=== PATIENT | female | born 1960 | race Caucasian/White ===

== ENCOUNTER → 2016-10-20 | Outpatient (CLI) | payer BC ==
--- NOTE | 2016-10-20 12:45 | MR ---
EXAMINATION TYPE: MR knee RT wo con DATE OF EXAM: 10/20/2016 12:23 PM COMPARISON: Outside right lower extremity x-ray August 04, 2016 HISTORY: Right knee pain per order. Outer knee pain and swelling for 4 months after a slip and fall i njury per patient TECHNIQUE: Multiplanar, multisequence images of the knee is performed without IV contrast. FINDINGS: MEDIAL MENISCUS: There is vague signal in the medial meniscus involving the posterior horn seen on co delmy image 18 and sagittal image 7, full-thickness tear cannot be excluded as on sagittal image 7 as there may be extension to underlying tibial articular surface. LATERAL MENISCUS: Posterior horn is intact without tear. Anterior horn is diminutive in size, abnorma l in appearance, complex multidirectional full-thickness tear is suspected involving inferior and tri tral aspects. This is seen best on sagittal images 25 through 23 tear extending from central avascula r zone into the anterior horn abutting both articular surfaces. CRUCIATE LIGAMENTS: The anterior and posterior cruciate ligaments are intact and unremarkable. COLLATERAL LIGAMENTS: The medial collateral ligament and lateral collateral ligament complex are inta ct and unremarkable. EXTENSOR MECHANISM: Visualized quadriceps and patellar tendons are intact. EFFUSION: There is small to moderate size suprapatellar joint effusion. POPLITEAL CYST: There is a small popliteal/iglesias cyst measuring 3.6 cm on long axis on sagittal image 11. TRICOMPARTMENT SPACES: There is mild to moderate tricompartment joint space loss and mild spurring. CARTILAGE: There is fairly moderate patellofemoral chondromalacia patella with thinning of articular cartilage, full-thickness defects are seen along posterior patellar pole especially medial surface. U nderlying bone marrow signal intensity is maintained. There is more prominent focal full-thickness cartilaginous loss involving the anterior medial aspect of the distal femoral condyle measuring approximately 9 mm transversely on coronal image 12. Some dewayne ctive osseous edema at the bone is noted at this level. BONE MARROW SIGNAL: No additional areas of abnormal focal abnormal marrow signal is appreciated. OTHER: No additional significant abnormality is appreciated. IMPRESSION: 1. Complex multidirectional full-thickness tear involving anterior horn and body of lateral meniscus. 2. At least intrasubstance tear posterior horn of medial meniscus, full-thickness tear cannot be excl uded. 3. Fairly moderate osteoarthritic changes in right knee as detailed above. Underlying chondromalacia patella is noted as detailed above. 4. Focal cartilaginous loss for osteochondral injury involving the anterior medial aspect of distal l ateral femoral condyle as detailed above. 5. Small to moderate size suprapatellar joint effusion. 6. Small popliteal cyst.
== END | disposition home or self-care (01) ==
LOC: RADMRIMAIN 11:40
PROVIDERS: ATTEND Orthopaedic Surgery
DX: S83.271A Complex tear of lateral meniscus, current injury, right knee, initial encounter (principal); M17.11 Unilateral primary osteoarthritis, right knee; M71.21 Synovial cyst of popliteal space [Baker], right knee

== ENCOUNTER → 2016-11-19 | Outpatient (CLI) | payer BC ==
[2016-11-19 13:37] LABS: EKG EKG PERFORMED
[2016-11-19 13:47] LABS: Basophils # (A) 0.1 k/uL (0-0.2); Basophils % (A) 1 %; CH 28.5; CHCM 31.6; Eosinophils # (A) 0.1 k/uL (0-0.7); Eosinophils % (A) 3 %; HCT 42.5 % (34.0-46.0); HDW 2.36; HGB 13.3 gm/dL (11.4-16.0); Luc # (Auto) 0.13; Luc % (Auto) 3; Lymphocytes # (A) 0.9 k/uL (1.0-4.8); Lymphocytes % (A) 17 %; MCH 28.5 pg (25.0-35.0); MCHC 31.4 g/dL (31.0-37.0); MCV 90.7 fL (80.0-100.0); Mean Platelet Volume 6.5; Monocytes # (A) 0.3 k/uL (0-1.0); Monocytes % (A) 6 %; Neutrophils # (A) 3.5 k/uL (1.3-7.7); Neutrophils % (A) 71 %; RBC 4.69 m/uL (3.80-5.40); RDW 13.2 % (11.5-15.5); WBC (Perox) 5.18
[2016-11-19 14:04] LABS: Anion Gap 9 mmol/L; Carbon Dioxide 29 mmol/L (22-30); Chloride 103 mmol/L (98-107); Potassium 4.5 mmol/L (3.5-5.1); Sodium 141 mmol/L (137-145)
== END | disposition home or self-care (01) ==
LOC: LABPAT 13:09
PROVIDERS: ATTEND Orthopaedic Surgery
DX: Z01.810 Encounter for preprocedural cardiovascular examination (principal); M23.91 Unspecified internal derangement of right knee
CPT/HCPCS: 36415; 80051; 85025; 93005

== ENCOUNTER 2016-12-10 07:51 | Day surgery (SDC) | payer BC ==
[2016-12-08 10:32] VITALS: BMI 36.6
--- NOTE | 2016-12-09 15:00 | HP ---
DATE OF ADMISSION: 12/10/2016 Ruchi Bronson is a 56-year-old patient seen with right knee pain. We discussed options. She elected to proceed with right knee arthroscopy. Consent was obtained regarding the procedure. Past medical history is osteoarthritis and asthma. PAST SURGICAL HISTORY: Left knee arthroscopy. DAILY MEDICATIONS: 1. Multivitamins. 2. Aleve. ALLERGIES: PENICILLIN, CECLOR, and NEOSPORIN. SOCIAL HISTORY: Patient denies current tobacco use. Physical evaluation of the right knee: Range of motion is 0 to 120 degrees, there is a mild effusion present. Tenderness medial joint line. Positive medial Carly's. Crepitus along the medial compartment with range of motion. Ligaments stable. Hip rotation is without pain. Distal neurovascular exam is intact. Radiographs of the right knee revealed mild mediolateral and moderate patellofemoral compartment osteoarthritis. An MRI of the right knee revealed medial and lateral meniscal tears. IMPRESSION: Internal major right knee with medial and lateral meniscal tears. PLAN: Right knee arthroscopy with partial medial/lateral meniscectomy and debridement.
[~2016-12-10 07:51] MED LIST: CLINDAMYCIN 900 MG in DEXTROSE 5% IN WATER 50 ML IVPB ONE; DEXAMETHASONE SOD PHOSPHATE 10 MG/ML 1 ML VIAL IV ONE; LACTATED RINGERS 1,000 ML IV SCH; MIDAZOLAM 2 MG/2 ML VIAL IV PRN; ONDANSETRON 4 MG/2 ML VIAL IVP ONE
[2016-12-10] MEDS ORDERED: LIDOCAINE 1% 20 ML VIAL (10MG/ML) FOR IV START INTRADERMA ONE (08:16)
[2016-12-10] MEDS ORDERED: PROPOFOL 10 MG/ML 20 ML VIAL IV ONE (09:31)
[2016-12-10] MEDS ORDERED: fentaNYL (PF) 50 MCG/ML 2 ML AMP ONE (09:31)
[2016-12-10] MEDS ORDERED: SUCCINYLCHOLINE CHLORIDE 100 MG/5 ML SYR IV ONE (09:31)
[2016-12-10] MEDS ORDERED: MIDAZOLAM 2 MG/2 ML VIAL ONE (09:31)
[2016-12-10] MEDS ORDERED: BUPIVACAIN-EPI 0.25%-1:200,000 30 ML VIAL INTRAARTIC ONE ×2 (10:03→10:26)
--- NOTE | 2016-12-10 10:49 | P.OP ---
Date of Procedure: 12/10/16 Preoperative Diagnosis: Internal derangement right knee Postoperative Diagnosis: 1. Medial and lateral meniscal tear right knee 2. 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 Reactive synovitis lateral and suprapatellar compartments right knee Procedure(s) Performed: 1. Arthroscopic partial medial and lateral meniscectomy right knee 2. Arthroscopic chondroplasty lateral femoral condyle right knee 3. Arthroscopic chondroplasty patellofemoral joint right knee 4. Arthroscopic partial synovectomy lateral and suprapatellar compartments right knee Anesthesia: SEVENA, local Surgeon: Harsha Casillas Estimated Blood Loss (ml): 20 Pathology: none sent Condition: stable Disposition: PACU Indications for Procedure: 56-year-old patient seen with right knee pain. After having treatment options discussed, she elected to proceed with right knee arthroscopy. Operative Findings: See description of procedure Description of Procedure: Patient was taken to the operative suite. Patient underwent a general anesthetic by the department of anesthesia. Patient was given preoperative antibiotics. The right lower extremity was placed in a well-padded arthroscopic leg mckeon. The right leg was prepped and draped in the normal sterile orthopedic fashion. A lateral parapatellar and suprapatellar incision was made. Trochars were inserted. Arthroscopy was initiated. Suprapatellar pouch revealed thick reactive synovitis. The patellofemoral joint appeared to articulate congruently. There was grade 3 chondromalacia involving both the patella and femoral sulcus. There were osteochondral tears present.. The scope was guided into the medial gutter. No loose bodies or plica were identified. The scope was then guided into the medial compartment. A medial parapatellar incision was made. Trocar inserted followed by probe. There was a small radial tear involving the posterior horn medial meniscus. Grade 1 chondromalacia changes of both femoral condyle and tibial plateau. No loose bodies. No synovitis. A partial medial meniscectomy performed on a stable tissue. The residual meniscus was found to be stable. Scope and probe were then guided into the intercondylar notch. Cruciates were identified, probed and found to be stable. The scope and probe were then guided into lateral compartment. There was a bucket-handle type tear involving the anterior horn lateral meniscus which extended into the mid body. There were grade 2 chondromalacia changes of the lateral femoral condyle some osteochondral tears present. There was synovitis noted anteriorly. I performed a partial lateral meniscectomy down to stable tissue. A chondroplasty medial femoral condyle was was performed followed by partial synovectomy. The residual meniscus was found to be stable. The scope was in guided back into the suprapatellar compartment. I introduced a motorized shaver into the super patellar compartment and performed a chondroplasty of the patellofemoral joint down to stable tissue followed by partial synovectomy. Shaver was removed. I took one more look on the entire knee and there was no residual debris. Instruments were now removed from the joint. The joint was infiltrated with .25% Marcaine. Steri-Strips were applied to the portal sites. Sterile dressings were applied. The patient was placed into a DARINEL hose. No tourniquet was utilized. The patient was awakened, transferred to a bed and taken to recovery stable satisfactory condition.
[2016-12-10 10:54] VITALS: TEMP 97.2
[2016-12-10] MEDS ORDERED: KETOROLAC 30 MG/ML 1 ML VIAL IVP ONE (11:04)
[2016-12-10] MEDS: HYDROmorphone 1 MG/ML 1 ML SYRINGE IVP PRN ×4 (11:04→11:28)
[2016-12-10] MEDS ORDERED: HYDROcodone/APAP 7.5-325MG 1 EACH TAB PO ONE (12:00)
[2016-12-10 12:10] VITALS: RESP 18
[2016-12-10 12:29] VITALS: BP 120/84; PULSE 80
== END 2016-12-10 13:10 | disposition home or self-care (01) ==
LOC: OR 07:51
PROVIDERS: ATTEND Orthopaedic Surgery
DX: S83.241A Other tear of medial meniscus, current injury, right knee, initial encounter (principal); S83.251A Bucket-handle tear of lateral meniscus, current injury, right knee, initial encounter; X58.XXXA Exposure to other specified factors, initial encounter; M94.261 Chondromalacia, right knee; M22.41 Chondromalacia patellae, right knee; M65.861 Other synovitis and tenosynovitis, right lower leg; M23.91 Unspecified internal derangement of right knee; M25.461 Effusion, right knee; M17.11 Unilateral primary osteoarthritis, right knee; J45.909 Unspecified asthma, uncomplicated; Z79.891 Long term (current) use of opiate analgesic; Z79.1 Long term (current) use of non-steroidal anti-inflammatories (NSAID); Z88.1 Allergy status to other antibiotic agents; Z88.0 Allergy status to penicillin; Z87.891 Personal history of nicotine dependence
CPT/HCPCS: 29880; J1100; J2405; J1885; J1170

== ENCOUNTER → 2022-03-24 | Outpatient (CLI) | payer BC ==
--- NOTE | 2022-03-24 10:54 | CT ---
EXAMINATION TYPE: CT right knee - [facility] Protocol DATE OF EXAM: 03/24/2022 COMPARISON: No recent radiographs available for review HISTORY: 61-year-old female right knee pain, osteoarthritis-right knee. M25.561,M17.11 CT DLP: 665.7 mGycm. Automated exposure control for dose reduction was used. TECHNIQUE: CT scanning of the right lower extremity for surgical planning purposes. Scanning was perf ormed at the right hip, right knee, and right ankle/foot. Coronal and sagittal reconstructions perfor med. FINDINGS: At the hip, there is asymmetric mild degenerative change on the right. Incidental sigmoid diverticulo sis. Uterus surgically absent. No abnormal fluid collection in the pelvis. Multiple right-sided pelvi c phleboliths. At the right knee, there is a moderate to large joint effusion. Suggestion of some small loose bodies in the lateral gutter of the suprapatellar pouch. Tricompartmental degenerative spurring is present greatest in the medial and lateral compartments. Extensor mechanism appears intact. No acute fracture , subluxation, dislocation. There is also a small 3.5 cm Junior's cyst. At the foot, tiny bilateral type I accessory navicular is noted. Some generalized soft tissue swellin g on both sides. Tiny os trigonum. Subtalar joint alignment. Tibiotalar joint intact. IMPRESSION: 1. CT right knee for surgical planning purposes. There is a moderate to large right knee joint effusi on with small Junior's cyst. Tricompartmental OA, greatest in the medial and lateral compartments. 2. Mild right hip OA. 3. Incidental sigmoid diverticulosis.
== END | disposition home or self-care (01) ==
LOC: RADCTMAIN 08:50
PROVIDERS: ATTEND Orthopaedic Surgery
DX: M17.11 Unilateral primary osteoarthritis, right knee (principal); K57.30 Diverticulosis of large intestine without perforation or abscess without bleeding; M16.11 Unilateral primary osteoarthritis, right hip

== ENCOUNTER 2022-05-01 11:02 | Observation (INO) | payer BC ==
[2022-04-29 11:35] VITALS: BMI 39.1
[~2022-05-01 11:02] MED LIST changes: +ACETAMINOPHEN TAB 500 MG TAB PO PRN; -CLINDAMYCIN 900 MG in DEXTROSE 5% IN WATER 50 ML IVPB ONE; -DEXAMETHASONE SOD PHOSPHATE 10 MG/ML 1 ML VIAL IV ONE; +DEXAMETHASONE SOD PHOSPHATE 10 MG/ML 1 ML VIAL IV PRN; +DEXAMETHASONE SOD PHOSPHATE 4 MG/ML 1 ML VIAL IV ONE; +DOCUSATE 100 MG CAP PO PRN; +FAMOTIDINE 20 MG/2 ML VIAL IVP PRN; +HYDROmorphone 0.5 MG/0.5 ML SYRINGE IVP PRN; +KETOROLAC 15 MG/ML 1 ML VIAL IVP PRN; -MIDAZOLAM 2 MG/2 ML VIAL IV PRN; +ONDANSETRON 4 MG/2 ML VIAL IVP PRN; +ROPIVACAINE/EPI/CLONIDINE/KET 50 ML SYRINGE MISCELLANE PRN; +TRANEXAMIC ACID IN NACL,ISO-OS 1,000 MG in SALINE 1 100ML.BAG IVPB PRN; +oxyCODONE ER 10 MG TAB.ER.12H PO PRN
[2022-05-01 11:57] LABS: Glucose,Whole Blood 77 mg/dL (70-110)
[2022-05-01] MEDS ORDERED: fentaNYL (PF) 50 MCG/ML 2 ML AMP IVP ONE (12:25)
[2022-05-01] MEDS ORDERED: MIDAZOLAM 2 MG/2 ML VIAL IVP ONE (12:25)
[2022-05-01] MEDS ORDERED: ROPIVACAINE 5 MG/ML 30 ML VIAL ONE (13:07)
[2022-05-01] MEDS ORDERED: TRANEXAMIC ACID IN NACL,ISO-OS 1,000 MG/100 ML BAG ONE (13:07)
[2022-05-01] MEDS ORDERED: HYDROmorphone (PF) 1 MG/ML ONE (13:07)
[2022-05-01] MEDS ORDERED: PROPOFOL 10 MG/ML 20 ML VIAL IV ONE (13:07)
[2022-05-01] MEDS ORDERED: PHENYLEPHRINE-0.9% NACL SYG 1,000 MCG/10 ML SYRINGE ONE (13:07)
[2022-05-01] MEDS ORDERED: LIDOCAINE 2% INJ 20 MG/ML (2 ML VIAL) ONE (13:07)
[2022-05-01] MEDS ORDERED: SODIUM CHLORIDE 0.9% (PF) 10 ML VIAL ONE (13:07)
[2022-05-01] MEDS ORDERED: ePHEDrine 50 MG/ML 1 ML VIAL ONE (13:07)
[2022-05-01] MEDS ORDERED: MIDAZOLAM 2 MG/2 ML VIAL ONE (13:07)
[2022-05-01] MEDS ORDERED: fentaNYL (PF) 50 MCG/ML 2 ML AMP ONE (13:07)
[2022-05-01] MEDS: ROPIVACAINE/EPI/CLONIDINE/KET 50 ML SYRINGE MISCELLANE PRN ×2 (14:03→14:30)
[2022-05-01] MEDS ORDERED: LACTATED RINGERS 1,000 ML IV ONE (14:45)
[2022-05-01] MEDS ORDERED: HYDROmorphone 1 MG/ML 1 ML SYRINGE IVP PRN (15:29)
[2022-05-01] MEDS ORDERED: HYDROcodone/APAP 5-325MG 1 EACH TAB PO PRN ×2 (15:29)
[2022-05-01] MEDS ORDERED: ONDANSETRON 4 MG/2 ML VIAL IVP PRN (15:29)
[2022-05-01] MEDS ORDERED: HYDROmorphone 0.5 MG/0.5 ML SYRINGE IVP PRN (15:29)
[2022-05-01] MEDS ORDERED: hydrOXYzine pamoate 25 MG CAP PO PRN (15:29)
[2022-05-01] MEDS ORDERED: NALOXONE 0.4 MG/ML 1 ML VIAL IV PRN (15:29)
--- NOTE | 2022-05-01 15:33 | P.OP ---
Date of Procedure: 05/01/22 Preoperative Diagnosis: 1. Right knee osteoarthritis 2. BMI 38.6 Postoperative Diagnosis: Same Procedure(s) Performed: Right total knee arthroplasty Implants: 1. [employer] CR Femur Size #4 2. [employer] [place] Tibial Base Size #3 3. [employer] CS poly Size #3, 9-mm 4. [employer] all poly patella, Size #29 Anesthesia: regional, spinal Surgeon: Binu Corrigan Instructor Of Nursing #1: Ian Yin Instructor Of Nursing #2: Mary Desai Estimated Blood Loss (ml): 100 IV fluids (ml): 1,100 Pathology: none sent Condition: stable Disposition: PACU Indications for Procedure: Patient presented with severe right knee pain. She has had multiple attempts at treatment over the last several years and had continued pain. Her x-rays showed severe joint space narrowing of the lateral compartment and patellofemoral joint. I met with the patient preoperatively in the office setting and discussed treatment of their symptomatic knee arthritis. They failed a long c ourse of nonsurgical treatment and elected to proceed with an elective total knee replacement. I discussed the potential risks and complications at length and gave them ample time to ask questions. Risks discussed included: risks from anesthesia, superficial site surgical infection, acute and/or chronic periprosthetic joint infection, delayed wound healing, drainage, wound necrosis, instability, stiffness, stiffness requiring manipulation and/or revision surgery, damage to local blood vessels or nerves, aseptic loosening of the implants, extensor mechanism issues including disruption, patellar maltracking, avascular necrosis etc., continued or worsened knee pain, generalized dissatisfaction with surgical outcome, need for revision surgery, an inability to regain preinjury level of function, DVT, PE, other medical complications, and possibly loss of life or limb. The patient voiced their understanding that while these are the most common complications other less common complications are possible. They provided both their verbal and written consent to go forward with surgery. Operative Findings: Severe full-thickness cartilage loss in the lateral and patellofemoral compartment with full-thickness cartilage loss. Moderate cartilage loss in the medial compartment. Description of Procedure: The patient was identified in preoperative holding and the correct operative extremity was verified and marked with a marker. I reviewed the consent form with the patient at length. All of their questions were answered. The patient was given a block by anesthesia. They were then brought back to the operating room. They were transferred onto the operating room table where a general anesthetic, preoperative antibiotics, and tranexamic acid were administered by anesthesia. A tourniquet was applied to the proximal aspect of the operative extremity. The contralateral extremity was padded under the heel and secured to the operating room table with a nonsterile blue towel and tape. The ipsilateral arm was carefully draped across the patient's chest and secured with a pillow and foam. A post was applied over the lateral aspect of the ipsilateral thigh and a bolster was placed under the ipsilateral foot. I verified that the operative extremity was stable and the knee was flexed to 90. The operative extremity was then placed in a leg mkceon, nonsterile drapes were applied, and the extremity was prepped and draped sterilely in the standard sterile fashion. Prior to starting surgery timeout was performed identifying the correct patient, operative extremity, and procedure. The leg was then elevated, exsanguinated with an Esmarch bandage, and the tourniquet was inflated. An anterior midline incision was made sharply with a scalpel. Once I had dissected deep to the superficial fascial layer medial and lateral flaps were elevated. A medial parapatellar arthrotomy was created. Upon opening the knee joint there were diffuse arthritic changes in all 3 compartments. The anterior horn of the medial meniscus were sharply released and a medial release was performed around the posterior medial corner of the knee to facilitate retractor placement. The fat pad was excised with electrocautery. The patella was found to be severely arthritic and a provisional cut was made with a sagittal saw to facilitate mobilization of the extensor mechanism during the procedure. Remnants of the ACL and PCL were then excised from the notch. 4 mm pins were then placed within the incision in the medial distal femur and proximal tibia. Arrays were applied to the pins and I verified they were completely tightened. The knee was then registered with the [employer] robot and manipulations in implant position were made to balance the knee and opitmize implant position. Using the [employer] robotic saw all cuts were made in accordance with our plan. After all bony fragments had been removed the cuts were verified with the planar probe. The tibia was then subluxed forward and sized. The knee was brought into flexion and a lamina restorative art embalmer was placed to allow removal of the meniscal remnants both medially and laterally as well as posterior osteophytes. Local anesthetic was then infiltrated around the joint capsule. Trial implants were then placed within the knee. Range of motion and collateral ligament tension was then evaluated. Adjustments in implant size and position were then made accordingly. Once the knee was felt to be appropriately balanced the Kyle pins were removed. The patella was then recut, sized, and punched. A trial patellar button was then placed. With the trial components in place, the patella tracked midline. The femur was then drilled and the trial component removed. The trial tibial component was then appropriately rotated, pinned, and prepared for the keel. All trial components were then removed from the knee. The knee was thoroughly irrigated with pulsatile lavage. Cement was prepared via vacuum mixing in a bowl on the back table. I then hand pressurized cement into the femur and tibia and placed the implants beginning with the tibial base tray and poly liner, femoral component, and finally the patellar button. All extruded cement was removed including from the pin sites. Once the cement had hardened the knee was evaluated one final time with the final polyethylene liner in place. The knee had full extension and flexion and felt stable to varus and valgus stress throughout the arc of motion. The tourniquet was released and with the tourniquet down the patella tracked midline. All bleeders were controlled with electrocautery. The knee was then soaked for 3 minutes with a dilute Betadine soak. The knee was thoroughly irrigated using 3 L of sterile saline and pulsatile lavage. The extensor mechanism was then reapproximated using pop off Vicryl sutures followed by a running barbed suture. The knee was then closed in layers with a 0 strata fix for the deep fascial layer, 2-0 strata fix for the superficial subcutaneous layer and Monocryl and Steri-Strips for the skin. A sterile dressing was applied. I verified that all instrument, sponge, and sharp counts were correct. The patient was then transferred off the operating room table, extubated, and brought to recovery having tolerated the procedure well. Mary Desai PA-C was required as a skilled family assistant due to the complexity of the procedure for patient positioning, draping, retraction, placement of hardware, and closure of wound. PLAN: The patient can weight-bear as tolerated on the operative extremity. DVT prophylaxis with aspirin 81 mg twice a day based on preoperative risk stratification. Follow-up in the office in 2 weeks for wound check and x-rays of the knee including an AP and lateral.
--- NOTE | 2022-05-01 16:06 | P.ANPRN ---
Procedure Note - Anesthesia - Nerve Block Performed Right Adductor Canal Single Time Out Performed: Yes (1224) Date of Procedure: 05/01/22 Procedure Start Time: 12:25 Procedure Stop Time: 12:30 Location of Patient: PreOp Indication: Acute Post-Operative Pain, Requested by Surgeon Specifically requested for management of pain by DrAlbino: Binu Corrigan Sedation Type: Sedate with meaningful contact maintained Preparation: Sterile Prep Position: Supine Catheter: None Needle Types: Pajunk Needle Gauge: 21 Ultrasound used to visualize needle placement: Yes Ultrasound used to observe medication spread: Yes Injectate: 0.5% Ropivacaine (see comment for volume) (15cc + 10cc nacl pf) Blood Aspirated: No Pain Paresthesia on Injection Noted: No Resistance on Injection: Normal Image Stored and Saved: Yes Events: Uneventful and Well Tolerated
--- NOTE | 2022-05-01 16:07 | P.ANPRN ---
Procedure Note - Anesthesia - Nerve Block Performed Right iPack Single Time Out Performed: Yes (1224) Date of Procedure: 05/01/22 Procedure Start Time: 12:31 Procedure Stop Time: 12:35 Location of Patient: PreOp Indication: Acute Post-Operative Pain, Requested by Surgeon Specifically requested for management of pain by DrAlbino: Binu Corrigan Sedation Type: Sedate with meaningful contact maintained Preparation: Sterile Prep Position: Supine Catheter: None Needle Types: Pajunk Needle Gauge: 21 Ultrasound used to visualize needle placement: Yes Ultrasound used to observe medication spread: Yes Injectate: 0.5% Ropivacaine (see comment for volume) (15cc + 10 cc nacl pf) Blood Aspirated: No Pain Paresthesia on Injection Noted: No Resistance on Injection: Normal Image Stored and Saved: Yes Events: Uneventful and Well Tolerated
--- NOTE | 2022-05-01 16:19 | XR ---
EXAMINATION TYPE: XR knee limited RT DATE OF EXAM: 05/01/2022 CLINICAL HISTORY: Postoperative evaluation Two views of the right knee are submitted. Identified are changes of total knee arthroplasty with femoral and tibial components appearing well seated. Postsurgical soft tissue changes are noted. Alignment is anatomic.
[2022-05-01] MEDS: HYDROmorphone 0.5 MG/0.5 ML SYRINGE IVP PRN ×2 (18:20→21:37)
[2022-05-01] MEDS: LACTATED RINGERS 1,000 ML IV SCH (18:23)
[2022-05-01] MEDS ORDERED: ALBUTEROL NEBULIZED 2.5 MG/3 ML INHALATION PRN (19:54)
[2022-05-01] MEDS: ASPIRIN 81 MG PO SCH (20:32)
[2022-05-01] MEDS ORDERED: SENNOSIDES-DOCUSATE SODIUM 1 EACH TAB PO SCH (21:00)
[2022-05-01] MEDS ORDERED: MONTELUKAST 10 MG TAB PO SCH (21:00)
[2022-05-02] MEDS: HYDROmorphone 0.5 MG/0.5 ML SYRINGE IVP PRN ×2 (00:52→06:22)
[2022-05-02] MEDS: LACTATED RINGERS 1,000 ML IV SCH (03:57)
[2022-05-02 07:36] VITALS: BP 108/69; PULSE 66; RESP 16; TEMP 97.6
[2022-05-02] MEDS: ASPIRIN 81 MG PO SCH (08:13)
--- NOTE | 2022-05-02 08:59 | P.CONS ---
History of Present Illness - Reason for Consult Asthma - History of Present Illness Patient is a pleasant 61-year-old female admitted for right knee arthroscopy patient is successful underwent surgery patient is clinically doing well at this time. Patient only prior history was asthma patient is not in acute exacerbation patient didn't pass gas yet that pain is well-controlled this time. REVIEW OF SYSTEMS: CONSTITUTIONAL: No fever, no malaise, no fatigue. HEENT: No recent visual problems or hearing problems. Denied any sore throat. CARDIOVASCULAR: No chest pain, orthopnea, PND, no palpitations, no syncope. PULMONARY: No shortness of breath, no cough, no hemoptysis. GASTROINTESTINAL: No diarrhea, no nausea, no vomiting, no abdominal pain. NEUROLOGICAL: No headaches, no weakness, no numbness. HEMATOLOGICAL: Denies any bleeding or petechiae. GENITOURINARY: Denies any burning micturition, frequency, or urgency. MUSCULOSKELETAL/RHEUMATOLOGICAL: Denies any joint pain, swelling, or any muscle pain. ENDOCRINE: Denies any polyuria or polydipsia. The rest of the 14-point review of systems is negative. PHYSICAL EXAMINATION: GENERAL: The patient is alert and oriented x3, not in any acute distress. Obese HEENT: Pupils are round and equally reacting to light. EOMI. No scleral icterus. No conjunctival pallor. Normocephalic, atraumatic. No pharyngeal erythema. No thyromegaly. CARDIOVASCULAR: S1 and S2 present. No murmurs, rubs, or gallops. PULMONARY: Chest is clear to auscultation, no wheezing or crackles. ABDOMEN: Soft, nontender, nondistended, normoactive bowel sounds. No palpable organomegaly. MUSCULOSKELETAL: Deferred daughter brick surgery patient doesn't have any significant redness in the right knee. EXTREMITIES: No cyanosis, clubbing, or pedal edema. NEUROLOGICAL: Gross neurological examination did not reveal any focal deficits. SKIN: No rashes. Assessment and plan -Asthma without any acute exacerbation patient can continue her as needed albuterol at home -Osteoarthritis: Patient underwent the right knee arthroplasty pain management due to prophylaxis as per primary service Patient is medically stable to be discharged Past Medical History Past Medical History: Asthma, Osteoarthritis (OA) Additional Past Medical History / Comment(s): FIBROID CYSTS IN BREASTS, HERNIATED DISC LOWER BACK, HX OF VARICOSE VEINS. seasonal asthma, hypoglycemia History of Any Multi-Drug Resistant Organisms: None Reported Past Surgical History: Cholecystectomy, Hernia Repair, Hysterectomy, Orthopedic Surgery Additional Past Surgical History / Comment(s): INCISIONAL HERNIA REPAIR, SUNITA CARPAL TUNNEL., VARICOSE VEINS. rt thumb surgery Past Anesthesia/Blood Transfusion Reactions: Family History of Problems w/ Anesthesia Additional Past Anesthesia/Blood Transfusion Reaction / Comm: pt states she has "female relatives who developed dementia after having surgery with anesthesia" Past Psychological History: No Psychological Hx Reported Smoking Status: Former smoker Past Alcohol Use History: Occasional Additional Past Alcohol Use History / Comment(s): STARTED SMOKING AGE 16., QUIT SMOKING 1992. SMOKED 1 1/2 -2 PPD. SMOKED FOR APPROX 17 YEARS. Past Drug Use History: None Reported - Past Family History Father Family Medical History: Cancer Additional Family Medical History / Comment(s): COLON CA Medications and Allergies Home Medications Medication Instructions Recorded Confirmed Type Multivitamins, Thera [Multivitamin] 1 each PO DAILY 10/29/14 05/01/22 History Acetaminophen Tab [Tylenol Tab] 500 mg PO DIRECTED PRN 04/27/16 05/01/22 History Albuterol Inhaler [Ventolin Hfa 1 - 2 puff INHALATION Q6H PRN 04/29/22 05/01/22 History Inhaler] Loratadine-Pseudoeph 10-240 mg 1 tab PO DAILY 04/29/22 05/01/22 History [Claritin-D 24 Hour] Meloxicam [Mobic] 7.5 mg PO DAILY PRN 04/29/22 05/01/22 History Montelukast [Singulair] 10 mg PO HS 04/29/22 05/01/22 History Allergies Allergy/AdvReac Type Severity Reaction Status Date / Time bacitracin Allergy Unknown Rash/Hives Verified 05/01/22 11:22 [From Neosporin ([id number])] bacitracin zinc Allergy Unknown Rash/Hives Verified 05/01/22 11:22 [From Neosporin ([id number])] cefaclor [From Ceclor] Allergy Unknown Rash/Hives Verified 05/01/22 11:22 neomycin sulfate Allergy Unknown Rash/Hives Verified 05/01/22 11:22 [From Neosporin ([id number])] polymyxin B Allergy Unknown Rash/Hives Verified 05/01/22 11:22 [From Neosporin ([id number])] Penicillins AdvReac Unknown Nausea Verified 05/01/22 11:22 levofloxacin AdvReac Nausea Verified 05/01/22 11:22 Physical Exam Vitals: Vital Signs Temp Pulse Pulse Resp BP Pulse Ox 05/02/22 07:35 97.6 F 66 16 108/69 96 05/02/22 02:50 97.5 F L 65 14 84/57 94 L 05/01/22 19:55 97.9 F 77 18 86/54 96 05/01/22 18:07 79 116/79 05/01/22 17:52 79 116/79 05/01/22 17:38 81 106/69 05/01/22 17:23 72 116/67 05/01/22 17:07 97.3 F L 68 17 105/71 05/01/22 16:40 73 16 110/63 100 05/01/22 16:25 69 16 109/62 99 05/01/22 16:10 69 16 111/62 98 05/01/22 15:55 76 16 111/62 98 05/01/22 15:43 73 16 116/58 98 05/01/22 15:28 96.8 F L 73 16 116/58 98 05/01/22 12:38 63 12 109/54 96 05/01/22 11:28 98.0 F 73 14 119/71 98 Intake and Output 05/01/22 05/02/22 05/02/22 22:59 06:59 14:59 Intake Total 200 Output Total 100 Balance 100 Intake: IV 200 Output: Urine 0 Estimated Blood Loss 100 Other: Voiding Method Toilet # Voids 1 Weight 105.3 kg Results CBC & Chem 7: 05/01/22 12:15
[2022-05-02] MEDS ORDERED: MULTIVITAMINS, THERA 1 EACH TAB PO SCH (09:00)
[2022-05-02] MEDS ORDERED: FAMOTIDINE 20 MG TAB PO SCH (09:00)
--- NOTE | 2022-05-02 09:39 | P.DS ---
Providers Date of admission: 05/02/22 01:20 Expected date of discharge: 05/02/22 Attending physician: Binu Corrigan Consults: 05/01/22 17:18 Consult Physician Routine Consulting Provider: Carlos Baugh Consult Reason/Comments: medical managment Do you want consulting provider notified?: Yes Primary care physician: Carlos Baugh MD Hospital Course: This is a 61-year-old female who was last seen in the office by Dr. Corrigan with complaints of continued right knee pain. The patient has a known history of degenerative arthritis of the right knee and presents to discuss surgical options. After discussion and consideration the patient elects to proceed with total right knee arthroplasty. The patient is seen preoperatively by Dr. Baugh and cleared for surgery. The patient is admitted to [facility] for total right knee arthroplasty. The procedures performed without complication or sequelae. Patient is doing well postoperatively. Vital signs are stable at discharge. Labs are stable at discharge. The patient is examined bedside this morning. She states the pain in her right knee is well-controlled at this time. She is ambulating with a walker with minimal assistance. She has passed physical therapy to return home today. She overall feels well. She denies chest pain, shortness of breath, nausea, vomiting, fevers, chills. On examination, the patient is lying in bed in no apparent distress. She is alert and oriented 3. On inspection of her right knee, there is surgical OpSite dressing in place with no bleeding or drainage through the dressing. Mild swelling of the knee. Motor and sensory function is intact of the right lower extremity. Right lower extremity were well perfused. The calf is soft and nontender. The patient is discharged to home with home health care on postop day #1 pending medical clearance. Please see orders and refer to the med rec for accurate list of medications. Patient should follow-up in the office in two weeks with Dr. Corrigan. Plan - Discharge Summary Discharge Rx Participant: Yes New Discharge Prescriptions: New Docusate [Colace] 100 mg PO BID #60 capsule Omeprazole 40 mg PO DAILY 30 Days #30 cap Aspirin 81 mg PO BID 30 Days #60 tab HYDROcodone/APAP 5-325MG [[place] 5-325] 1 - 2 tab PO Q6HR PRN 7 Days #30 tab PRN Reason: Pain Diclofenac Sodium [Voltaren] 75 mg PO BID 30 Days #60 tab No Action Multivitamins, Thera [Multivitamin] 1 each PO DAILY Acetaminophen Tab [Tylenol Tab] 500 mg PO DIRECTED PRN PRN Reason: Pain Meloxicam [Mobic] 7.5 mg PO DAILY PRN PRN Reason: Pain Loratadine-Pseudoeph 10-240 mg [Claritin-D 24 Hour] 1 tab PO DAILY Albuterol Inhaler [Ventolin Hfa Inhaler] 1 - 2 puff INHALATION Q6H PRN PRN Reason: Shortness Of Breath Montelukast [Singulair] 10 mg PO HS Discharge Medication List Multivitamins, Thera [Multivitamin] 1 each PO DAILY 10/29/14 [History] Acetaminophen Tab [Tylenol Tab] 500 mg PO DIRECTED PRN 04/27/16 [History] Albuterol Inhaler [Ventolin Hfa Inhaler] 1 - 2 puff INHALATION Q6H PRN 04/29/22 [History] Loratadine-Pseudoeph 10-240 mg [Claritin-D 24 Hour] 1 tab PO DAILY 04/29/22 [History] Meloxicam [Mobic] 7.5 mg PO DAILY PRN 04/29/22 [History] Montelukast [Singulair] 10 mg PO HS 04/29/22 [History] Aspirin 81 mg PO BID 30 Days #60 tab 05/02/22 [Rx] Diclofenac Sodium [Voltaren] 75 mg PO BID 30 Days #60 tab 05/02/22 [Rx] Docusate [Colace] 100 mg PO BID #60 capsule 05/02/22 [Rx] HYDROcodone/APAP 5-325MG [[place] 5-325] 1 - 2 tab PO Q6HR PRN 7 Days #30 tab 05/02/22 [Rx] Omeprazole 40 mg PO DAILY 30 Days #30 cap 05/02/22 [Rx] Follow up Appointment(s)/Referral(s): Binu Corrigan MD [Medical Doctor] - 2 Weeks Activity/Diet/Wound Care/Special Instructions: Weight bear to tolerance on operative knee with a walker. Keep operative dressing intact until follow-up appointment in the office. Call the office if dressing becomes saturated or falls off. May shower over dressing. Take pain medications as needed. Take aspirin 81 mg twice a day 4 weeks for blood clot prevention. Follow-up in the office in [address] Corrigan. Call the office with any questions or concerns, Discharge Disposition: HOME WITH HOME HEALTH SERVICES
[2022-05-02 11:38] LABS: Basophils # (A) 0.02 X 10*3/uL (0.00-0.10); Basophils % (A) 0.2 %; Eosinophils # (A) 0.01 X 10*3/uL (0.04-0.35); Eosinophils % (A) 0.1 %; HCT 35.3 % (37.2-46.3); Immature Grans, Automated 0.3 %; Lymphocytes # (A) 0.87 X 10*3/uL (0.90-5.00); Lymphocytes % (A) 8.6 %; MCH 28.3 pg (27.0-32.0); MCHC 31.2 g/dL (32.0-37.0); MCV 90.7 fL (80.0-97.0); Mean Platelet Volume 10.3 fL (9.5-12.2); Monocytes % (A) 7.9 %; NRBC Per 100 WBC 0 /100 WBCS (0.0-0.0); Neutrophils # (A) 8.39 X 10*3/uL (1.80-7.70); Neutrophils % (A) 82.9 %; Platelet Count 264 X 10*3/uL (140-440); RBC 3.89 X 10*6/uL (4.10-5.20); RDW 13.8 % (11.5-14.5); WBC 10.12 X 10*3/uL (4.50-10.00)
== END 2022-05-02 12:00 | disposition home health service (06) ==
LOC: OR 11:02 → 4SSUR 15:28 → OR 05-02 01:20 → 4SSUR 05-02 01:20
PROVIDERS: ADMIT Orthopaedic Surgery; ATTEND Orthopaedic Surgery
DX: M17.11 Unilateral primary osteoarthritis, right knee (principal); J45.40 Moderate persistent asthma, uncomplicated; M25.761 Osteophyte, right knee; N60.29 Fibroadenosis of unspecified breast; E66.9 Obesity, unspecified; Z68.38 Body mass index [BMI] 38.0-38.9, adult; Z79.1 Long term (current) use of non-steroidal anti-inflammatories (NSAID); Z79.899 Other long term (current) drug therapy; Z88.0 Allergy status to penicillin; Z88.1 Allergy status to other antibiotic agents; Z97.3 Presence of spectacles and contact lenses; Z90.49 Acquired absence of other specified parts of digestive tract; Z90.710 Acquired absence of both cervix and uterus; Z87.891 Personal history of nicotine dependence; Z98.890 Other specified postprocedural states; Z80.0 Family history of malignant neoplasm of digestive organs; Z82.49 Family history of ischemic heart disease and other diseases of the circulatory system
CPT/HCPCS: 97161; 64447; 64999; 76942; 84132; 85025; 73560; 27447; G0378; C1776; C1713; J2250; J1100; J0690 ×2; J2405; J3010; J1170 ×3; J2795; J1885; J2370; J2704; J2001